=== PATIENT | female | born 1995 | race Caucasian/White ===

== ENCOUNTER 2019-10-09 01:37 | Emergency (ER) | payer BC ==
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
== END 2019-10-09 02:58 | disposition home or self-care (01) ==
LOC: JP.ED 01:37
DX: S00.03XA Contusion of scalp, initial encounter (principal); S00.33XA Contusion of nose, initial encounter; F41.9 Anxiety disorder, unspecified; F32.9 Major depressive disorder, single episode, unspecified; Z79.899 Other long term (current) drug therapy; Z88.1 Allergy status to other antibiotic agents; Y04.0XXA Assault by unarmed brawl or fight, initial encounter
CPT/HCPCS: 99283